=== PATIENT | male | born 1980 | race African-American/Black ===

== ENCOUNTER 2019-09-04 08:55 | Day surgery (SDC) | payer MEDICARE, OTHER ==
[~2019-09-04] VITALS: Ht 170.2 cm; Wt 76.0 kg
[~2019-09-04 08:55] MED LIST: AMLO10TA4 PO; ASPI-630 PO; ATOR40TA59 PO; BACL10TA PO; CALC667T4 PO; CARV25TA2 PO; CLON1PAT TD; DOCU100C28 PO; FOLI0.8T21 PO; FURO80TA3 PO; HEPARIN SODIUM 1,000 UNIT in IV NORMAL SALINE 100ML 100 ML IRR ONE; HYDR100T24 PO; HYDR50TA6 PO; HYDROmorphone 2 MG/ML VIAL IV PRN; IV NORMAL SALINE 1000ML BAG 1,000 ML IV SCH; LEVE250T30 PO; METF10007 PO; MORPHINE SULFATE 2 MG/ML VIAL. IV PRN; NIFE90TA20 PO; OMEP20CA16 PO; ONDA8TAB9 PO; ONDANSETRON PF 4 MG/2 ML VIAL. IV PRN; POTA20TA12 PO; PROCHLORPERAZINE 10 MG/2 ML VIAL. IV PRN; SIMV40TA PO; fentaNYL PF VIAL 100 MCG/2 ML VIAL IV PRN
[2019-09-04] MEDS ORDERED: IV NORMAL SALINE 1000ML BAG 1,000 ML IV SCH (09:15)
[2019-09-04 09:52] LABS: CALCIUM 8.5 mg/dL (8.5-10.1); GFR 10.7; POTASSIUM 3.6 mmol/L (3.5-5.1)
[2019-09-04] MEDS ORDERED: ceFAZolin 2GM PREMIX 2 GM/50 ML BAG IV ONE (10:00)
[2019-09-04] MEDS ORDERED: ROCURONIUM 50 MG/5 ML VIAL. ONE (10:37)
[2019-09-04] MEDS ORDERED: DEXAMETHASONE SOD PHOS 4 MG/ML VIAL ONE (10:37)
[2019-09-04] MEDS ORDERED: PROPOFOL 10 MG/ML (20ML) VIAL. IV ONE (10:37)
[2019-09-04] MEDS ORDERED: ONDANSETRON PF 4 MG/2 ML VIAL. ONE (10:37)
[2019-09-04] MEDS ORDERED: LIDOCAINE 2% PF 5 ML VIAL. ONE (10:37)
[2019-09-04] MEDS ORDERED: fentaNYL PF VIAL 100 MCG/2 ML VIAL ONE ×2 (10:38→12:45)
[2019-09-04] MEDS ORDERED: GLYCOPYRROLATE 1 MG/5 ML VIAL. ONE (12:12)
[2019-09-04] MEDS ORDERED: NEOSTIGMINE METHYLSULFATE 5 MG/5 ML SYRINGE. ONE (12:12)
[2019-09-04] MEDS ORDERED: DESFLURANE 61 TO 120 MINUTES IH ONE (12:24)
--- NOTE | 2019-09-04 12:31 | PDOC4 ---
Operative Note Operative Note OPERATIVE NOTE: PREOPERATIVE DIAGNOSIS: Renal failure. POSTOPERATIVE DIAGNOSIS: Renal failure. PROCEDURE: Laparoscopic peritoneal dialysis catheter placement. SURGEON: Denilson Edmonds MD ANESTHESIA: General. ESTIMATED BLOOD LOSS: 10 mL. SPECIMENS: None. DRAINS: None. COMPLICATIONS: None. INDICATIONS: The patient is a 39 year old male who was referred for placement of a peritoneal dialysis catheter due to progressive renal failure. The details and risks of surgery were discussed with the patient. The risks of surgery include bleeding, infection, visceral injury, pain, anesthetic risk, potential need for additional surgery or procedure. In addition, the patient is aware of the potential for catheter malfunction or dysfunction and possibility of needing revision, replacement, or removal of the catheter. They understand all this and would like to proceed. DESCRIPTION OF PROCEDURE: The patient was brought to the operating room and placed supine on the operating table. General anesthesia was performed. The abdomen was prepped with ChloraPrep and draped in a standard surgical manner. A small incision was made in the patient's left upper quadrant through which a visualized 5-mm trocar was inserted. A pneumoperitoneum was then created and the laparoscope was introduced. Initial inspection showed no significant adhesions or any other gross abnormalities. U A small incision was made to the left of the patient's midline at the planned location for the exit site of the cuff. An 8-mm trocar was inserted through this location. The coiled portion of the lower catheter was then inserted into the pelvis under direct visualization. The cuff was positioned in the rectus musculature. The coiled portion rested well in the inferior mid pelvis. The pneumoperitoneum was then relieved. An incision was then made in the left lower quadrant at the planned exit site. The proximal portion of the catheter was tunnelled subcutaneously to the exit site. The proximal cuff remained in the subcutaneous tissue a few cm away from the exit site. The catheter was then assembled to IV tubing and tested by infusing a liter of saline. The saline passed easily into the abdomen and the bag was placed on the floor. Nearly all of the saline readily was retrieved with prompt flow. The abdominal cavity was then reinsufflated and the laparoscope was reintroduced showing no change in the catheter position and the cuff remained in the rectus. The pneumoperitoneum was relieved and the ports were removed. The catheter was then assembled to the connector tubing as per the dialysis instr uctions. All the incision sites were closed with 4-0 Monocryl. Steri-Strips and sterile dressing were then applied. The patient tolerated procedure well and was sent to the recovery room in stable condition. At the end of the case all counts were correct. DENILSON EDMONDS MD Sep 04, 2019 12:31
--- NOTE | 2019-09-04 12:35 | DISCH ---
DISCHARGE INSTRUCTIONS Condition on Discharge Condition on Discharge: Stable Activity After Discharge Activity Instructions for Disc: Other, see below (no lifting over 20 lbs X 2 weeks) Driving Instructions after Dis: Other, see below (no driving while taking pain meds) Diet after Discharge Diet after Discharge: Regular Wound Incision Care Wound/Incision Care: Other, see below (keep dressing clean and dry until seen by dialysis center) Follow-Up Follow up with: Dialysis center, call for appt KATIA EDMONDS MD Sep 04, 2019 12:35
[2019-09-04] MEDS: fentaNYL PF VIAL 100 MCG/2 ML VIAL IV PRN ×2 (12:54→13:00)
[2019-09-04] MEDS ORDERED: OXYC1TAB15 PO (13:05)
[2019-09-04] MEDS ORDERED: MORPHINE SULFATE 2 MG/ML VIAL. ONE (13:11)
[2019-09-04 13:56] VITALS: BP 161/97
[2019-09-04] MEDS ORDERED: oxyCODONE/APAP 5/325 1 TAB TABLET PO ONE (14:00)
== END 2019-09-04 14:37 | disposition home or self-care (01) ==
LOC: SURG 08:55
PROVIDERS: ATTEND Surgery
DX: E11.22 Type 2 diabetes mellitus with diabetic chronic kidney disease (principal); I12.0 Hypertensive chronic kidney disease with stage 5 chronic kidney disease or end stage renal disease; N18.6 End stage renal disease; G47.30 Sleep apnea, unspecified; E78.00 Pure hypercholesterolemia, unspecified; K21.9 Gastro-esophageal reflux disease without esophagitis; D64.9 Anemia, unspecified; Z87.891 Personal history of nicotine dependence; Z79.84 Long term (current) use of oral hypoglycemic drugs
CPT/HCPCS: 36415; 49324; 80048; 82962; A7015; C1713; J0696; J1100; J1644; J2270; J2405; J2704; J2710; J3010; J3490

== ENCOUNTER → 2019-11-07 | Outpatient (CLI) | payer MEDICARE, OTHER ==
[~2019-11-07] MED LIST changes: -HEPARIN SODIUM 1,000 UNIT in IV NORMAL SALINE 100ML 100 ML IRR ONE; -HYDROmorphone 2 MG/ML VIAL IV PRN; -IV NORMAL SALINE 1000ML BAG 1,000 ML IV SCH; -MORPHINE SULFATE 2 MG/ML VIAL. IV PRN; -ONDANSETRON PF 4 MG/2 ML VIAL. IV PRN; +OXYC1TAB15 PO; -PROCHLORPERAZINE 10 MG/2 ML VIAL. IV PRN; -fentaNYL PF VIAL 100 MCG/2 ML VIAL IV PRN
[2019-11-07 14:11] LABS: HEMATOCRIT 21.2 % (39.0-53.0); HEMOGLOBIN 7.2 g/dL (13.0-17.5); RED BLOOD COUNT 2.75 x10^6/uL (4.30-5.70); RED CELL DISTRIBUTION WIDTH 19.2 % (11.5-14.5); WHITE BLOOD COUNT 7.1 x10^3/uL (4.0-11.0)
== END | disposition home or self-care (01) ==
LOC: LAB 13:42
PROVIDERS: ATTEND Internal Medicine Nephrology
DX: D58.2 Other hemoglobinopathies (principal)
CPT/HCPCS: 36415; 85027